=== PATIENT | female | born 1995 | race Caucasian/White ===

== ENCOUNTER 2017-04-08 15:00 | Emergency (ER) | payer OTHER ==
[2017-04-08 16:57] LABS: MEAN CORPUSCULAR HEMOGLOBIN 31.3 pg (27.0-33.0); MEAN CORPUSCULAR HGB CONC 34.6 g/dl (32.0-36.5); MEAN CORPUSCULAR VOLUME 90.4 fl (80.0-96.0); PLATELET COUNT, AUTOMATED 171 10^3/uL (150-450); RED CELL DISTRIBUTION WIDTH 13.7 % (11.5-14.5); WHITE BLOOD COUNT 11.8 10^3/uL (4.0-10.0)
[2017-04-08 17:09] LABS: KETONE, URINE AUTO RFX NEGATIVE (NEGATIVE); LEUKOCYTE ESTERASE UR AUTO RFX NEGATIVE (NEGATIVE); NITRITE, URINE AUTO RFX NEGATIVE (NEGATIVE); RBC, URINE AUTO RFX 1 /HPF (0-3); SPECIFIC GRAVITY UR AUTO RFX 1.009 (1.002-1.035); SQUAM EPITHELIAL CELL UR AURFX 1 /HPF (0-6); WBC, URINE AUTO RFX 0 /HPF (0-3)
== END 2017-04-08 18:21 | disposition home or self-care (01) ==
LOC: M ED 15:00
DX: O20.9 Hemorrhage in early pregnancy, unspecified (principal); Z3A.20 20 weeks gestation of pregnancy; Z88.1 Allergy status to other antibiotic agents; Z88.8 Allergy status to other drugs, medicaments and biological substances
CPT/HCPCS: 76817

== ENCOUNTER 2017-06-28 19:58 | Outpatient (CLI) | payer OTHER ==
[2017-06-28 21:49] LABS: HEMOGLOBIN 13.5 g/dl (12.0-16.0); MEAN CORPUSCULAR HEMOGLOBIN 31.9 pg (27.0-33.0); MEAN CORPUSCULAR HGB CONC 34.6 g/dl (32.0-36.5); MEAN CORPUSCULAR VOLUME 92.2 fl (80.0-96.0); PLATELET COUNT, AUTOMATED 158 10^3/uL (150-450); RED BLOOD COUNT 4.23 10^6/uL (4.00-5.40); WHITE BLOOD COUNT 13.6 10^3/uL (4.0-10.0)
[2017-06-28 22:01] LABS: INR 0.91; PROTHROMBIN TIME 12.4 SECONDS (12.4-14.5)
[2017-06-28 22:02] LABS: FIBRINOGEN 454 MG/DL (221-452); PARTIAL THROMBOPLASTIN TIME 27.3 SECONDS (26.8-37.9)
== END 2017-06-29 00:10 | disposition home or self-care (01) ==
LOC: M LDO 19:58
DX: O99.89 Other specified diseases and conditions complicating pregnancy, childbirth and the puerperium (principal); Z3A.31 31 weeks gestation of pregnancy; W19.XXXA Unspecified fall, initial encounter; R10.9 Unspecified abdominal pain; O62.0 Primary inadequate contractions; Z88.1 Allergy status to other antibiotic agents
CPT/HCPCS: 59025

== ENCOUNTER 2017-08-18 15:40 | Inpatient (IN) | payer OTHER ==
[2017-08-18 17:21] LABS: HEMATOCRIT 38.4 % (36.0-47.0); HEMOGLOBIN 13.5 g/dl (12.0-15.5); MEAN CORPUSCULAR HEMOGLOBIN 32.3 pg (27.0-33.0); MEAN CORPUSCULAR HGB CONC 35.2 g/dl (32.0-36.5); MEAN CORPUSCULAR VOLUME 91.9 fl (80.0-96.0); PLATELET COUNT, AUTOMATED 135 10^3/uL (150-450); RED BLOOD COUNT 4.18 10^6/uL (4.00-5.40); WHITE BLOOD COUNT 11.9 10^3/uL (4.0-10.0)
[2017-08-18] MEDS ORDERED: LR 1,000 ML IV (18:22)
[2017-08-18] MEDS: LR 1,000 ML IV (18:42)
[2017-08-18] MEDS: OXYTOCIN DRIP 30 UNITS in APPROPRIATE DILUENT 1 EA IV (18:43)
[2017-08-19] MEDS: NALBUPHINE HCL 10 MG/ML AMP (J2300) IV ×2 (00:30→05:31)
[2017-08-19] MEDS: PROMETHAZINE INJ 25 MG/ML VIAL (J2550) IV (00:30)
[2017-08-19] MEDS: NALBUPHINE HCL 10 MG/ML AMP (J2300) IM (00:30)
[2017-08-19] MEDS ORDERED: FENTANYL 2MCG/ML ROPIVACAINE 0.2% IN 0.9% NACL 200ML IVBAG As Ordered (09:59)
[2017-08-19] MEDS ORDERED: FENTANYL/ROPIVACAINE/NACL BAG 200 ML EPIDURAL (11:15)
[2017-08-19] MEDS ORDERED: diphenhydrAMINE INJ 50MG/ML VIAL (J1200) IV ×2 (11:15→17:30)
[2017-08-19] MEDS ORDERED: ONDANSETRON 4MG/2ML VIAL (J2405) IV ×3 (11:15→17:30)
[2017-08-19] MEDS ORDERED: ePHEDrine SULFATE 25 MG/5 ML(5MG/ML) SYRINGE IV (11:15)
[2017-08-19] MEDS ORDERED: EPIDURAL COMMENT XX (11:15)
[2017-08-19] MEDS ORDERED: REFRIGERATOR IV KEYS XX (11:15)
[2017-08-19] MEDS ORDERED: LACTATED RINGER'S 1000 ML IV (11:15)
[2017-08-19] MEDS ORDERED: EPIDURAL/PCA KEYS XX (11:15)
[2017-08-19] MEDS ORDERED: NALOXONE INJ 0.4 MG/1 ML VIAL (J2310) IV ×3 (11:15→16:45)
[2017-08-19] MEDS: VANCOMYCIN HCL 1,000 MG, VIAL MATE ADAPTER 1 EACH in D5W 250 ML IV (12:45)
[2017-08-19] MEDS: D5W IV (13:50)
[2017-08-19] MEDS: GENTAMICIN IV (13:50)
[2017-08-19] MEDS: ACETAMINOPHEN 500 MG TAB PO ×3 (14:26→20:47)
[2017-08-19] MEDS: BICITRA 30ML SOLN UDC PO (15:45)
[2017-08-19] MEDS ORDERED: OXYTOCIN INJ 10 UNITS/ML VIAL (J2590) As Ordered ×2 (16:11)
[2017-08-19] MEDS ORDERED: ONDANSETRON 4MG/2ML VIAL (J2405) As Ordered (16:12)
[2017-08-19] MEDS ORDERED: KETOROLAC 60 MG/2 ML VIAL (J1885) As Ordered (16:12)
[2017-08-19] MEDS ORDERED: MORPHINE PRES-FREE INJ 10 MG/10 ML VIAL (J2274) As Ordered (16:35)
[2017-08-19 16:36] LABS: CORD GAS ABE A -3.3; CORD GAS ABE V -2.1; CORD GAS HCO3 A 24.2 MEQ/L; CORD GAS HCO3 V 24.6 MEQ/L; CORD GAS O2 SAT A 36.9 %; CORD GAS O2 SAT V 50.9 %; CORD GAS PCO2 V 48.8 mmHg; CORD GAS PH A 7.286 UNITS; CORD GAS PO2 A 22.7 mmHg; CORD GAS SBC A 20.1 MEQ/L; CORD GAS SBC V 21.5 MEQ/L; CORD GAS TCO2 A 25.8 MEQ/L; CORD GAS TCO2 V 26.1 MEQ/L
[2017-08-19] MEDS ORDERED: NALBUPHINE HCL 10 MG/ML AMP (J2300) IV (16:45)
[2017-08-19] MEDS ORDERED: METOCLOPRAMIDE INJ 10MG/2ML VIAL (J2765) IV (16:45)
[2017-08-19] MEDS ORDERED: miSOPROStol 200 MCG TAB (S0191) As Ordered (17:05)
[2017-08-19] MEDS ORDERED: KETOROLAC 30 MG/ML VIAL (J1885) IV (17:30)
[2017-08-19] MEDS: LR 1,000 ML IV (17:30)
[2017-08-19] MEDS ORDERED: fentaNYL 100 MCG/2 ML INJECTION (J3010) IV (17:30)
[2017-08-19] MEDS ORDERED: MEPERIDINE INJ 25 MG/ML VIAL (J2175) IV (17:30)
[2017-08-19] MEDS: miSOPROStol 200 MCG TAB (S0191) PR (18:15)
[2017-08-19] MEDS ORDERED: VANCOMYCIN HCL 1,000 MG, VIAL MATE ADAPTER 1 EACH in D5W 250 ML IV (19:45)
[2017-08-19] MEDS: DOCUSATE SODIUM 100 MG CAP PO (22:04)
[2017-08-20] MEDS: LR 1,000 ML IV ×5 (01:04→18:03)
[2017-08-20] MEDS: VANCOMYCIN HCL 1,000 MG, VIAL MATE ADAPTER 1 EACH in D5W 250 ML IV ×2 (01:04→12:42)
[2017-08-20] MEDS: KETOROLAC 30 MG/ML VIAL (J1885) IV ×4 (01:05→18:52)
[2017-08-20 06:42] LABS: HEMATOCRIT 28.7 % (36.0-47.0); MEAN CORPUSCULAR HEMOGLOBIN 32.6 pg (27.0-33.0); MEAN CORPUSCULAR HGB CONC 34.5 g/dl (32.0-36.5); MEAN CORPUSCULAR VOLUME 94.4 fl (80.0-96.0); PLATELET COUNT, AUTOMATED 109 10^3/uL (150-450); RED BLOOD COUNT 3.04 10^6/uL (4.00-5.40); RED CELL DISTRIBUTION WIDTH 13.8 % (11.5-14.5); WHITE BLOOD COUNT 16.7 10^3/uL (4.0-10.0)
[2017-08-20 06:51] LABS: HEMOGLOBIN 9.9 g/dl (12.0-15.5)
[2017-08-20] MEDS: RHOGAM 300 MCG (1500 IU) INJ (J2790) IM (07:33)
[2017-08-20] MEDS: MEASLES,MUMPS,RUBELLA VACCINE INJ (MMR-II) (90707) SC (07:33)
[2017-08-20] MEDS: DOCUSATE SODIUM 100 MG CAP PO ×2 (09:23→21:56)
[2017-08-20] MEDS: PRENATAL VITAMINS CHEWABLE TABLET PO (09:23)
[2017-08-20] MEDS ORDERED: GENTAMICIN 360 MG in D5W 50 ML IV (14:00)
[2017-08-20] MEDS: GENTAMICIN IV (14:15)
[2017-08-20] MEDS: D5W IV (14:15)
[2017-08-20] MEDS: PERCOCET 5MG/325MG TAB PO (15:21)
[2017-08-21] MEDS: LR 1,000 ML IV ×2 (02:03→09:05)
[2017-08-21] MEDS: IBUPROFEN 800 MG TAB PO ×2 (02:57→10:51)
[2017-08-21] MEDS: DOCUSATE SODIUM 100 MG CAP PO (09:34)
[2017-08-21] MEDS: PRENATAL VITAMINS CHEWABLE TABLET PO (09:34)
[2017-08-21] MEDS: PERCOCET 5MG/325MG TAB PO (09:38)
== END 2017-08-21 16:05 | disposition home or self-care (01) | DRG 766 ==
LOC: M LDI 15:40 → M OBS 08-19 18:56
PROVIDERS: Obstetrics & Gynecology
PROC: 10D00Z1 Extraction of Products of Conception, Low, Open Approach (ICD-10-PCS; principal; 2017-08-19)
DX: O41.1230 Chorioamnionitis, third trimester, not applicable or unspecified (principal); Z3A.38 38 weeks gestation of pregnancy; Z37.0 Single live birth; Z88.1 Allergy status to other antibiotic agents; O62.0 Primary inadequate contractions; O32.4XX0 Maternal care for high head at term, not applicable or unspecified

== ENCOUNTER 2017-08-26 19:28 | Emergency (ER) | payer OTHER ==
[2017-08-26] MEDS ORDERED: ACETAMINOPHEN 325 MG TAB As Ordered (20:19)
[2017-08-26] MEDS: ACETAMINOPHEN 325 MG TAB PO (20:27)
[2017-08-26 20:35] LABS: BASO % 0.3 % (0.0-1.0); EOS # 0.1 10^3/uL (0.0-0.50); EOS % 0.5 % (0.0-3.0); HEMATOCRIT 33.8 % (36.0-47.0); HEMOGLOBIN 11.4 g/dl (12.0-15.5); IMMATURE GRANULOCYTE % 1.1 % (0-3.0); LYMPH # 1.8 10^3/uL (1.5-6.5); LYMPH % 12.5 % (24.0-44.0); MEAN CORPUSCULAR HEMOGLOBIN 31.6 pg (27.0-33.0); MEAN CORPUSCULAR HGB CONC 33.7 g/dl (32.0-36.5); MEAN CORPUSCULAR VOLUME 93.6 fl (80.0-96.0); MONO # 0.7 10^3/uL (0.0-0.8); MONO % 4.9 % (0.0-5.0); NEUTROPHILS # 11.3 10^3/uL (1.8-7.7); NEUTROPHILS % 80.7 % (36.0-66.0); PLATELET COUNT, AUTOMATED 366 10^3/uL (150-450); RED BLOOD COUNT 3.61 10^6/uL (4.00-5.40); RED CELL DISTRIBUTION WIDTH 12.8 % (11.5-14.5)
[2017-08-26 21:02] LABS: ANION GAP 7 MEQ/L (8-16); BLOOD UREA NITROGEN 15 MG/DL (7-18); CALCIUM LEVEL 9.4 MG/DL (8.5-10.1); CARBON DIOXIDE LEVEL 28 MEQ/L (21-32); CHLORIDE LEVEL 105 MEQ/L (98-107); CREATININE FOR GFR 0.97 MG/DL (0.55-1.30); GLOMERULAR FILTRATION RATE > 60.0 (>60); GLUCOSE, FASTING 101 MG/DL (70-100); POTASSIUM SERUM 4.5 MEQ/L (3.5-5.1); SODIUM LEVEL 140 MEQ/L (136-145)
[2017-08-26] MEDS: AUGMENTIN 875 MG TAB PO (22:43)
[2017-08-26] MEDS ORDERED: GASTROGRAFIN SOLUTION 30ML (Q9963) As Ordered (23:00)
[2017-08-26] MEDS: GASTROGRAFIN SOLUTION 30ML PO ×2 (23:05)
[2017-08-27] MEDS ORDERED: ISOVUE-370 76% 100ML VIAL (Q9967) As Ordered (00:15)
[2017-08-27] MEDS ORDERED: MORPHINE 2 MG/ML 1ML SYRINGE (J2270) IV (02:00)
[2017-08-27] MEDS ORDERED: AUGMENTIN 875 MG TAB PO (02:15)
== END 2017-08-27 02:17 | disposition home or self-care (01) ==
LOC: M ED 08-27 02:17
DX: O86.0 Infection of obstetric surgical wound (principal); Z79.899 Other long term (current) drug therapy; Z88.1 Allergy status to other antibiotic agents
CPT/HCPCS: Q9967